=== PATIENT | female | born 1980 | race Caucasian/White ===

== ENCOUNTER 2018-10-22 09:57 | Inpatient (IN) ==
[2018-10-22] MEDS ORDERED: Tdap (Boostrix) Vaccine 0.5 ML SYRINGE IM ONE (10:02)
[2018-10-22] MEDS ORDERED: Lidocaine 1% 20 ML MDV INFILT ONE (10:21)
[2018-10-22 10:35] LABS: Bilirubin,Urine Negative (Negative); Blood,Urine Trace (Negative); Clarity,Urine Cloudy (Clear); Color,Urine Dark Yellow (Yellow); Glucose,Urine (UA) Normal (Normal); Ketones,Urine Negative (Negative); Leukocyte Esterase,Urine Small (Negative); Nitrite,Urine Positive (Negative); PH,Urine 6.5 pH Units (5.0-8.0); Protein,Urine Trace mg/dL (Neg-Trace); Specific Gravity,Urine 1.013 (1.010-1.025); Urobilinogen,Urine Normal (Normal)
[2018-10-22 10:38] LABS: Bacteria,Urine Many per hpf (None-Few); Hyaline Casts,Urine None Seen per lpf (None-Few); Squamous Epithelial Cell,Urine Many per lpf (None-Few)
[2018-10-22 10:50] LABS: Hematocrit 29.5 % (35.3-44.9); Hemoglobin 9.8 g/dL (11.5-15.4); Mean Corpuscular HGB Conc 33.2 g/dL (31.6-35.5); Mean Corpuscular Hemoglobin 28.7 pg (28.0-33.3); Mean Corpuscular Volume 86.5 fL (83.0-100.0); Mean Platelet Volume 10.1 fL (9.4-12.4); Platelet Count 231 K/mcL (140-400); Red Blood Count 3.41 M/mcL (3.82-4.97); Red Cell Distribution Width 13.2 % (11.5-14.5); White Blood Count 9.7 K/mcL (4.3-11.1)
[2018-10-22 11:10] LABS: Alanine Aminotransferase 27 Units/L (7-52); Albumin 3.2 g/dL (3.5-5.7); Albumin/Globulin Ratio 0.8 (1.1-2.2); Alkaline Phosphatase 192 Units/L (34-104); Aspartate Amino Transferase 27 Units/L (13-39); BUN/Creatinine Ratio 12 (6-26); Bilirubin,Total 0.8 mg/dL (0.3-1.0); Blood Urea Nitrogen 9 mg/dL (6-20); Calcium 8.8 mg/dL (8.6-10.3); Carbon Dioxide 26 mEq/L (23-29); Chloride 97 mEq/L (98-107); Globulin 4.1 g/dL (2.4-3.5); Glucose 106 mg/dL (70-105); Osmolality,Calculated 269 (280-300); Sodium 130 mEq/L (136-145); Total Protein 7.3 g/dL (6.4-8.9); eGFR For African Americans > 60 (> 60); eGFR For Non-African Americans > 60 (> 60)
[2018-10-22 11:23] LABS: Amphetamine Screen,Urine Positive ng/mL (Cutoff=1000); Barbiturate Screen,Urine Negative ng/mL (Cutoff=200); Benzodiazepines Screen,Urine Negative ng/mL (Cutoff=200); Cannabinoid Screen,Urine Negative ng/mL (Cutoff = 50); Cocaine Screen,Urine Negative ng/mL (Cutoff= 300); Opiate Screen,Urine Negative ng/mL (Cutoff=300); Phencyclidine Screen,Urine Negative ng/mL (Cutoff=25)
[2018-10-22 11:24] LABS: Acetaminophen < 10 mcg/mL (10-20); Ethanol < 10 mg/dL (Less than 10); Salicylate < 2.5 mg/dL (15.0-30.0)
[2018-10-22 11:32] LABS: Lymphocytes # 2.9 K/mcL (0.6-4.6); Monocytes # 0.5 K/mcL (0.0-1.3); Neutrophils # 6.2 K/mcL (1.6-8.9); Platelet Estimate Normal (Normal); Reactive Lymphocytes Present (Not Present)
[2018-10-22] MEDS ORDERED: Isovue-370 500 ML BOTTLE IVP ONE ×2 (11:39→11:41)
[2018-10-22] MEDS ORDERED: 0.9 % Sodium Chloride 1,000 ML IVC ONE (11:51)
[2018-10-22] MEDS ORDERED: Ondansetron 4 MG/2 ML VIAL IVP ONE ×3 (12:02→15:24)
[2018-10-22] MEDS ORDERED: *HR* FentaNYL (PF) 100 MCG/2 ML VIAL IVP ONE ×2 (12:02→15:46)
[2018-10-22] MEDS ORDERED: cefTRIAXone 1,000 MG in 0.9 % Sodium Chloride Mini Bag 100 ML IVPB ONE (12:02)
[2018-10-22 12:09] LABS: Creatine Kinase 16 Units/L (30-223)
[2018-10-22] MEDS ORDERED: Nicotine 7 MG PATCH.TD24 TD ONE (12:14)
[2018-10-22] MEDS ORDERED: Morphine Sulfate 2 MG/ML SYRINGE IVP ONE (14:22)
[2018-10-22 14:41] LABS: INR 1.1; Prothrombin Time 12.9 Seconds (9.4-12.1)
[2018-10-22 14:44] LABS: Activated Partial Thrombo Time 36.9 Seconds (26.0-36.0)
[2018-10-22 14:46] LABS: Hematocrit 29.7 % (35.3-44.9); Hemoglobin 9.8 g/dL (11.5-15.4); Mean Corpuscular Hemoglobin 28.9 pg (28.0-33.3); Mean Corpuscular Volume 87.6 fL (83.0-100.0); Mean Platelet Volume 10.7 fL (9.4-12.4); Platelet Count 227 K/mcL (140-400); Red Blood Count 3.39 M/mcL (3.82-4.97); Red Cell Distribution Width 13.2 % (11.5-14.5); White Blood Count 8.6 K/mcL (4.3-11.1)
[2018-10-22 15:09] LABS: Eosinophils # 0.5 K/mcL (0.0-0.6); Lymphocytes # 2.6 K/mcL (0.6-4.6); Monocytes # 0.5 K/mcL (0.0-1.3); Platelet Estimate Normal (Normal)
[2018-10-22] MEDS ORDERED: Naloxone 0.4 MG/ML INJ IVP PRN (15:12)
[2018-10-22] MEDS ORDERED: D5% in Water 1,000 ML IVC PRN (15:18)
[2018-10-22] MEDS ORDERED: Dextrose Gel 15 GM/37.5 ML TUBE PO PRN ×2 (15:18)
[2018-10-22] MEDS ORDERED: *HR* Dextrose 50 % in Water (Syg) 50 ML SYRINGE IVP PRN (15:18)
[2018-10-22] MEDS ORDERED: D5% in 0.9% NACL 1,000 ML IVC SCH (15:30)
[2018-10-22] MEDS ORDERED: Clindamycin 600 MG/50 ML 600 MG/50 ML IV.SOLN IVPB SCH (16:00)
[2018-10-22] MEDS ORDERED: Ondansetron 4 MG/2 ML VIAL IVP PRN (16:10)
[2018-10-22 16:33] LABS: Hematocrit 27.6 % (35.3-44.9); Hemoglobin 9.1 g/dL (11.5-15.4); Mean Corpuscular Hemoglobin 29.2 pg (28.0-33.3); Mean Corpuscular Volume 88.5 fL (83.0-100.0); Mean Platelet Volume 10.1 fL (9.4-12.4); Platelet Count 222 K/mcL (140-400); Red Blood Count 3.12 M/mcL (3.82-4.97); Red Cell Distribution Width 13.2 % (11.5-14.5); White Blood Count 8.3 K/mcL (4.3-11.1)
[2018-10-22 17:56] LABS: Lymphocytes # 2.5 K/mcL (0.6-4.6); Monocytes # 0.3 K/mcL (0.0-1.3); Neutrophils # 5.5 K/mcL (1.6-8.9); Platelet Estimate Normal (Normal); Reactive Lymphocytes Present (Not Present)
[2018-10-22] MEDS: Insulin LISPRO 300 UNITS/3 ML VIAL SQ SCH (18:27)
[2018-10-22 18:58] LABS: Basophils # 0.1 K/mcL (0.0-0.2); Basophils % 0.7 %; Eosinophils # 0.1 K/mcL (0.0-0.6); Eosinophils % 0.9 %; Hematocrit 26.3 % (35.3-44.9); Hemoglobin 8.6 g/dL (11.5-15.4); Lymphocytes # 2.8 K/mcL (0.6-4.6); Lymphocytes % 36.9 %; Mean Corpuscular HGB Conc 32.7 g/dL (31.6-35.5); Mean Corpuscular Hemoglobin 29.1 pg (28.0-33.3); Mean Corpuscular Volume 88.9 fL (83.0-100.0); Mean Platelet Volume 9.9 fL (9.4-12.4); Monocytes # 0.7 K/mcL (0.0-1.3); Monocytes % 9.2 %; Platelet Count 201 K/mcL (140-400); Red Blood Count 2.96 M/mcL (3.82-4.97); Red Cell Distribution Width 13.2 % (11.5-14.5); Segmented Neutrophils % 51.3 %; White Blood Count 7.7 K/mcL (4.3-11.1)
[2018-10-22 20:19] LABS: Platelet Estimate Normal (Normal)
[2018-10-22] MEDS ORDERED: 0.9 % Sodium Chloride 500 ML IVC ONE (21:00)
[2018-10-23] MEDS: Insulin LISPRO 300 UNITS/3 ML VIAL SQ SCH ×3 (00:04→11:28)
[2018-10-23 00:22] LABS: Basophils % 0.6 %; Eosinophils # 0.1 K/mcL (0.0-0.6); Eosinophils % 1.6 %; Hematocrit 25.6 % (35.3-44.9); Hemoglobin 8.5 g/dL (11.5-15.4); Immature Granulocytes % 1.4 % (0-4); Lymphocytes # 2.7 K/mcL (0.6-4.6); Lymphocytes % 42.7 %; Mean Corpuscular HGB Conc 33.2 g/dL (31.6-35.5); Mean Corpuscular Hemoglobin 29.1 pg (28.0-33.3); Mean Corpuscular Volume 87.7 fL (83.0-100.0); Mean Platelet Volume 10.2 fL (9.4-12.4); Monocytes # 0.6 K/mcL (0.0-1.3); Neutrophils # 2.8 K/mcL (1.6-8.9); Platelet Count 215 K/mcL (140-400); Red Blood Count 2.92 M/mcL (3.82-4.97); Red Cell Distribution Width 13.3 % (11.5-14.5); Segmented Neutrophils % 43.7 %; White Blood Count 6.4 K/mcL (4.3-11.1)
[2018-10-23 00:58] LABS: Platelet Estimate Normal (Normal); Smudge Cells Present (Not Present)
[2018-10-23 07:39] LABS: BUN/Creatinine Ratio 9 (6-26); Blood Urea Nitrogen 7 mg/dL (6-20); Calcium 8.3 mg/dL (8.6-10.3); Carbon Dioxide 27 mEq/L (23-29); Chloride 103 mEq/L (98-107); Glucose 95 mg/dL (70-105); Osmolality,Calculated 278 (280-300); Phosphorous 3.3 mg/dL (2.7-4.5); Sodium 135 mEq/L (136-145); eGFR For African Americans > 60 (> 60); eGFR For Non-African Americans > 60 (> 60)
[2018-10-23 08:17] LABS: Basophils % 0.4 %; Eosinophils # 0.1 K/mcL (0.0-0.6); Eosinophils % 2.2 %; Hematocrit 26.8 % (35.3-44.9); Hemoglobin 8.9 g/dL (11.5-15.4); Immature Granulocytes % 1.3 % (0-4); Mean Corpuscular HGB Conc 33.2 g/dL (31.6-35.5); Mean Corpuscular Hemoglobin 29.4 pg (28.0-33.3); Mean Corpuscular Volume 88.4 fL (83.0-100.0); Mean Platelet Volume 10.4 fL (9.4-12.4); Monocytes # 0.6 K/mcL (0.0-1.3); Monocytes % 10.1 %; Neutrophils # 2.8 K/mcL (1.6-8.9); Platelet Count 229 K/mcL (140-400); Red Blood Count 3.03 M/mcL (3.82-4.97); Red Cell Distribution Width 13.3 % (11.5-14.5); White Blood Count 5.6 K/mcL (4.3-11.1)
[2018-10-23 08:22] LABS: Platelet Estimate Normal (Normal); Reactive Lymphocytes Present (Not Present)
[2018-10-23] MEDS: Lactobacillus 1 EACH CAP.SPRINK PO SCH ×2 (10:19→20:28)
[2018-10-23] MEDS: Clindamycin 600 MG/50 ML 600 MG/50 ML IV.SOLN IVPB SCH ×3 (10:19→23:49)
[2018-10-23 12:02] LABS: C-Reactive Protein 64 mg/L (Less than 10)
[2018-10-23] MEDS ORDERED: cefTRIAXone 1,000 MG in Water for inj. (sterile) 10 ML IVP SCH (13:00)
[2018-10-23] MEDS: Nicotine 21 MG PATCH.TD24 TD SCH (17:47)
[2018-10-23] MEDS ORDERED: Pneumococcal 23 Valent Vaccine 25 MCG/0.5 ML VIAL IM ONE (21:13)
[2018-10-23] MEDS ORDERED: [UNRECOGNIZED DRUG - OTHER] IM ONE (21:14)
[2018-10-23] MEDS ORDERED: [UNRECOGNIZED DRUG - OTHER] IM ONE (21:30)
[2018-10-23] MEDS ORDERED: Haemoph B Poly Conj-Tet Tox/PF 10 MCG/0.5 ML VIAL IM ONE (21:30)
[2018-10-23] MEDS ORDERED: 0.9 % Sodium Chloride 500 ML IVC ONE (23:34)
[2018-10-24] MEDS: Lactobacillus 1 EACH CAP.SPRINK PO SCH ×2 (09:01→20:31)
[2018-10-24] MEDS: Clindamycin 600 MG/50 ML 600 MG/50 ML IV.SOLN IVPB SCH ×2 (09:12→16:06)
[2018-10-24] MEDS: Nicotine 21 MG PATCH.TD24 TD SCH (09:13)
[2018-10-24] MEDS ORDERED: D5% in 0.9% NACL 1,000 ML IVC SCH (09:15)
[2018-10-24] MEDS ORDERED: Aminoglycoside Consult 1 EACH MC ONE (09:15)
[2018-10-24] MEDS ORDERED: *HR* FentaNYL (PF) 100 MCG/2 ML VIAL ONE ×2 (09:50→11:45)
[2018-10-24] MEDS ORDERED: Dexamethasone 4 MG/ML VIAL ONE (09:50)
[2018-10-24] MEDS ORDERED: Lidocaine -MPF 2% 2 ML VIAL ONE (09:50)
[2018-10-24] MEDS ORDERED: *HR* Midazolam HCl 2 MG/2 ML VIAL ONE (09:50)
[2018-10-24] MEDS ORDERED: Ondansetron 4 MG/2 ML VIAL ONE (09:50)
[2018-10-24] MEDS ORDERED: *HR* Rocuronium Bromide 50 MG/5 ML VIAL ONE (09:50)
[2018-10-24] MEDS ORDERED: *HR* Propofol 200 MG/20 ML VIAL IVP ONE (09:50)
[2018-10-24] MEDS ORDERED: Scopolamine Patch 1.5 MG PATCH.TD72 TD ONE (09:51)
[2018-10-24] MEDS ORDERED: Lidocaine -MPF 4% 5 ML AMPUL ONE (09:51)
[2018-10-24] MEDS ORDERED: ceFAZolin 2,000 MG in Water for inj. (sterile) 20 ML IVP ONE (11:00)
[2018-10-24] MEDS ORDERED: *HR* PHENYLEPHRINE 1,000 MCG/10 ML SYRINGE IVP ONE (11:39)
[2018-10-24] MEDS ORDERED: Albumin Human 5% 25.0 GM/500 ML VIAL ONE (11:58)
[2018-10-24] MEDS ORDERED: Insulin LISPRO 300 UNITS/3 ML VIAL SQ SCH ×2 (12:00→18:00)
[2018-10-24] MEDS ORDERED: *HR* Vasopressin 20 UNIT/ML VIAL ONE (12:20)
[2018-10-24] MEDS ORDERED: *HR* HYDROMORPHONE 2 MG/ML VIAL ONE (12:35)
[2018-10-24] MEDS ORDERED: *HR* OxyCODONE Immed Rel 5 MG TABLET PO PRN (13:15)
[2018-10-24] MEDS ORDERED: *HR* HYDROmorphone (PF) 1 MG/ML SYRINGE IVP PRN (13:15)
[2018-10-24] MEDS ORDERED: *HR* Promethazine 25 MG/ML VIAL IVP PRN (13:15)
[2018-10-24] MEDS ORDERED: *HR* Labetalol 20 MG/4 ML SYRINGE IVP PRN (13:15)
[2018-10-24] MEDS ORDERED: Ondansetron 4 MG/2 ML VIAL IVP ONE (13:15)
[2018-10-24] MEDS ORDERED: Dextrose Gel 15 GM/37.5 ML TUBE PO PRN ×2 (14:02)
[2018-10-24] MEDS ORDERED: Naloxone 0.4 MG/ML INJ IVP PRN (14:02)
[2018-10-24] MEDS ORDERED: *HR* Dextrose 50 % in Water (Syg) 50 ML SYRINGE IVP PRN (14:02)
[2018-10-24] MEDS ORDERED: Ondansetron 4 MG/2 ML VIAL IVP PRN (14:02)
[2018-10-24] MEDS ORDERED: D5% in Water 1,000 ML IVC PRN (14:02)
[2018-10-24] MEDS: 0.9 % Sodium Chloride 1,000 ML IVC SCH (16:06)
[2018-10-24] MEDS: Acetaminophen IV 1,000 MG/100 ML INFUS..BTL IVPB SCH (17:00)
[2018-10-24] MEDS: QUEtiapine Fumarate 300 MG TABLET PO SCH (20:32)
[2018-10-24] MEDS ORDERED: DOXEPIN 10 MG PO SCH (21:00)
[2018-10-25] MEDS: 0.9 % Sodium Chloride 1,000 ML IVC SCH ×3 (00:40→15:16)
[2018-10-25] MEDS: Acetaminophen IV 1,000 MG/100 ML INFUS..BTL IVPB SCH ×5 (00:40→23:31)
[2018-10-25] MEDS: Clindamycin 600 MG/50 ML 600 MG/50 ML IV.SOLN IVPB SCH ×4 (00:41→23:31)
[2018-10-25] MEDS ORDERED: 0.9 % Sodium Chloride 500 ML IVC ONE ×2 (06:03→19:29)
[2018-10-25] MEDS: Nicotine 21 MG PATCH.TD24 TD SCH (08:47)
[2018-10-25] MEDS: Lactobacillus 1 EACH CAP.SPRINK PO SCH ×2 (08:47→20:05)
[2018-10-25 09:51] LABS: Basophils % 0.3 %; Eosinophils % 0.2 %; Hematocrit 30.2 % (35.3-44.9); Hemoglobin 10.1 g/dL (11.5-15.4); Immature Granulocytes % 1.5 % (0-4); Lymphocytes # 2.9 K/mcL (0.6-4.6); Lymphocytes % 21.9 %; Mean Corpuscular HGB Conc 33.4 g/dL (31.6-35.5); Mean Corpuscular Hemoglobin 30.1 pg (28.0-33.3); Mean Corpuscular Volume 89.9 fL (83.0-100.0); Mean Platelet Volume 11.9 fL (9.4-12.4); Monocytes # 1.4 K/mcL (0.0-1.3); Monocytes % 10.9 %; Nucleated Red Blood Cells 0.2 /100 WBC (0); Platelet Count 180 K/mcL (140-400); Red Blood Count 3.36 M/mcL (3.82-4.97); Red Cell Distribution Width 14.4 % (11.5-14.5); Segmented Neutrophils % 65.2 %
[2018-10-25 10:04] LABS: Alanine Aminotransferase 16 Units/L (7-52); Albumin 2.8 g/dL (3.5-5.7); Albumin/Globulin Ratio 0.8 (1.1-2.2); Alkaline Phosphatase 128 Units/L (34-104); Aspartate Amino Transferase 35 Units/L (13-39); BUN/Creatinine Ratio 15 (6-26); Bilirubin,Total 0.4 mg/dL (0.3-1.0); Blood Urea Nitrogen 11 mg/dL (6-20); Calcium 8.4 mg/dL (8.6-10.3); Carbon Dioxide 24 mEq/L (23-29); Chloride 112 mEq/L (98-107); Globulin 3.5 g/dL (2.4-3.5); Glucose 105 mg/dL (70-105); Magnesium 2.2 mg/dL (1.6-2.6); Osmolality,Calculated 290 (280-300); Phosphorous 3.4 mg/dL (2.7-4.5); Sodium 140 mEq/L (136-145); Total Protein 6.3 g/dL (6.4-8.9); eGFR For African Americans > 60 (> 60); eGFR For Non-African Americans > 60 (> 60)
[2018-10-25 10:06] LABS: Neutrophils # 8.5 K/mcL (1.6-8.9); White Blood Count 13.1 K/mcL (4.3-11.1)
[2018-10-25] MEDS: Ketorolac 15 MG/ML VIAL IVP SCH ×3 (12:11→23:31)
[2018-10-25 12:48] LABS: Varicella Zoster IgG Antibody Positive
[2018-10-25 12:49] LABS: Mumps Virus IgG Antibody POSITIVE; Rubella IgG Antibody POSITIVE (POSITIVE); Rubeola (Measles) IgG POSITIVE (POSITIVE)
[2018-10-25 14:35] LABS: Hepatitis B Surface Antigen Nonreactive (Nonreactive)
[2018-10-25 15:04] LABS: Hepatitis B Core IgM Nonreactive (Nonreactive)
[2018-10-25 15:05] LABS: Hepatitis A Antibody IgM Nonreactive (Nonreactive)
[2018-10-25 16:44] LABS: Hepatitis C Virus Antibody Reactive (Nonreactive)
[2018-10-25] MEDS: QUEtiapine Fumarate 300 MG TABLET PO SCH (20:05)
[2018-10-26] MEDS: 0.9 % Sodium Chloride 1,000 ML IVC SCH ×3 (02:55→15:37)
[2018-10-26] MEDS ORDERED: 0.9 % Sodium Chloride 500 ML IVC ONE (03:32)
[2018-10-26] MEDS: Ketorolac 15 MG/ML VIAL IVP SCH ×2 (05:12→11:41)
[2018-10-26] MEDS: Acetaminophen IV 1,000 MG/100 ML INFUS..BTL IVPB SCH ×2 (05:18→11:42)
[2018-10-26] MEDS: Clindamycin 600 MG/50 ML 600 MG/50 ML IV.SOLN IVPB SCH ×2 (08:49→15:37)
[2018-10-26] MEDS: Lactobacillus 1 EACH CAP.SPRINK PO SCH (08:50)
[2018-10-26] MEDS: Nicotine 21 MG PATCH.TD24 TD SCH (08:50)
[2018-10-26 09:33] LABS: BUN/Creatinine Ratio 15 (6-26); Blood Urea Nitrogen 10 mg/dL (6-20); Calcium 8.2 mg/dL (8.6-10.3); Carbon Dioxide 24 mEq/L (23-29); Chloride 110 mEq/L (98-107); Glucose 90 mg/dL (70-105); Osmolality,Calculated 291 (280-300); Sodium 141 mEq/L (136-145); eGFR For African Americans > 60 (> 60); eGFR For Non-African Americans > 60 (> 60)
[2018-10-26 16:08] VITALS: BP 107/71
[2018-10-26 17:02] LABS: Hematocrit 30.1 % (35.3-44.9); Hemoglobin 9.9 g/dL (11.5-15.4); Mean Corpuscular HGB Conc 32.9 g/dL (31.6-35.5); Mean Corpuscular Hemoglobin 29.7 pg (28.0-33.3); Mean Corpuscular Volume 90.4 fL (83.0-100.0); Mean Platelet Volume 11.7 fL (9.4-12.4); Nucleated Red Blood Cells 0.8 /100 WBC (0); Platelet Count 305 K/mcL (140-400); Red Blood Count 3.33 M/mcL (3.82-4.97); Red Cell Distribution Width 15.4 % (11.5-14.5); White Blood Count 12.5 K/mcL (4.3-11.1)
[2018-10-26 18:04] LABS: Lymphocytes # 2.8 K/mcL (0.6-4.6); Monocytes # 1.3 K/mcL (0.0-1.3); Neutrophils # 8.3 K/mcL (1.6-8.9)
[2018-10-26 18:05] LABS: Microcytosis Present (Not Present); Platelet Estimate Normal (Normal)
== END 2018-10-26 18:03 | disposition home or self-care (01) | DRG 650 ==
LOC: 3ANU 09:57 → EMEROOARM 09:57 → SUATTDRO 17:00 → 3ANU 17:38
PROVIDERS: ADMIT Internal Medicine; ATTEND Internal Medicine

== ENCOUNTER 2020-04-27 11:43 | Inpatient (IN) ==
[2020-04-27] MEDS ORDERED: 0.9 % Sodium Chloride 1,000 ML IVC ONE (11:51)
[2020-04-27] MEDS ORDERED: Isovue-370 500 ML BOTTLE IVP ONE ×2 (11:56→14:11)
[2020-04-27 12:37] LABS: INR 1.3
[2020-04-27 12:57] LABS: Basophils % 0.3 %; Eosinophils % 0.3 %; Mean Platelet Volume 11.4 fL (9.4-12.4)
[2020-04-27 12:59] LABS: Basophils # 0.1 K/mcL (0.0-0.2); Eosinophils # 0.1 K/mcL (0.0-0.6); Hemoglobin 15.8 g/dL (11.5-15.4); Lymphocytes # 2.6 K/mcL (0.6-4.6); Lymphocytes % 9.5 %; Mean Corpuscular HGB Conc 32.2 g/dL (31.6-35.5); Mean Corpuscular Volume 90.1 fL (83.0-100.0); Monocytes # 2.7 K/mcL (0.0-1.3); Neutrophils # 21.2 K/mcL (1.6-8.9); Platelet Count 312 K/mcL (140-400); Red Blood Count 5.44 M/mcL (3.82-4.97); Red Cell Distribution Width 14.2 % (11.5-14.5); Segmented Neutrophils % 78.9 %; White Blood Count 26.9 K/mcL (4.3-11.1)
[2020-04-27 13:12] LABS: Adenovirus Not Detected (Not Detect); Bordetella Pertussis Not Detected (Not Detect); Coronavirus 229E Not Detected (Not Detect); Coronavirus HKU1 Not Detected (Not Detect); Coronavirus NL63 Not Detected (Not Detect); Coronavirus OC43 Not Detected (Not Detect); Human Metapneumovirus Not Detected (Not Detect); Human Rhinovirus/Enterovirus Not Detected (Not Detect); Influenza A Subtype 2009 H1 Not Detected (Not Detect); Influenza B Not Detected (Not Detect); Parainfluenza Virus 1 Not Detected (Not Detect); Parainfluenza Virus 2 Not Detected (Not Detect); Parainfluenza Virus 3 Not Detected (Not Detect); Parainfluenza Virus 4 Not Detected (Not Detect); Respiratory Syncytial Virus Not Detected (Not Detect); SARS-CoV-2 Not Detected (Not Detect)
[2020-04-27 13:13] LABS: Chlamydophila pneumoniae Not Detected (Not Detect); Mycoplasma pneumoniae Not Detected (Not Detect)
[2020-04-27 13:57] LABS: BUN/Creatinine Ratio 17 (6-26); Blood Urea Nitrogen 11 mg/dL (6-20); Calcium 9.7 mg/dL (8.6-10.3); Carbon Dioxide 25 mEq/L (23-29); Chloride 95 mEq/L (98-107); Glucose 103 mg/dL (70-105); Osmolality,Calculated 266 (280-300); Potassium 4.3 mEq/L (3.5-5.1); Sodium 128 mEq/L (136-145); Troponin I 0.04 ng/mL (< 0.04); eGFR For African Americans > 60 (> 60); eGFR For Non-African Americans > 60 (> 60)
[2020-04-27 13:58] LABS: Anisocytosis 1+ (Not Present); Platelet Estimate Normal (Normal)
[2020-04-27] MEDS ORDERED: Aspirin 81 MG TAB.CHEW PO STA (13:58)
[2020-04-27 13:59] LABS: Large Platelets Present (Not Present)
[2020-04-27] MEDS ORDERED: Piperacillin/Tazobactam 3.375 GM in 0.9 % Sodium Chloride Mini Bag 100 ML IVPB ONE (13:59)
[2020-04-27] MEDS ORDERED: Morphine Sulfate 2 MG/ML SYRINGE IVP ONE (14:21)
[2020-04-27] MEDS ORDERED: Perflutren Lipid Microsphere 1.3 ML in 0.9 % Sodium Chloride 8.7 ML IVP PRN (15:45)
[2020-04-27] MEDS ORDERED: Naloxone 0.4 MG/ML INJ IVP PRN (15:53)
[2020-04-27] MEDS ORDERED: *HR* OxyCODONE Immed Rel 5 MG TABLET PO PRN (16:18)
[2020-04-27 16:19] LABS: Amphetamine Screen,Urine Negative ng/mL (Cutoff=1000); Barbiturate Screen,Urine Negative ng/mL (Cutoff=200); Benzodiazepines Screen,Urine Negative ng/mL (Cutoff=200); Cannabinoid Screen,Urine Negative ng/mL (Cutoff = 50); Cocaine Screen,Urine Negative ng/mL (Cutoff= 300); Opiate Screen,Urine Positive ng/mL (Cutoff=300); Phencyclidine Screen,Urine Negative ng/mL (Cutoff=25)
[2020-04-27] MEDS: *HR* HYDROcodone/Acet 5/325 mg TABLET PO PRN (17:26)
[2020-04-27] MEDS ORDERED: Levalbuterol Neb 1.25 MG/3 ML IH SCH (18:00)
[2020-04-27 19:57] LABS: Albumin 3.3 g/dL (3.5-5.7); Albumin/Globulin Ratio 0.9 (1.1-2.2); Bilirubin,Direct 0.1 mg/dL (0.0-0.2); Bilirubin,Indirect 0.3 mg/dL (0.0-1.0); Bilirubin,Total 0.4 mg/dL (0.3-1.0); Globulin 3.6 g/dL (2.4-3.5); Total Protein 6.9 g/dL (6.4-8.9)
[2020-04-27 20:08] LABS: Hepatitis B Surface Antigen Nonreactive (Nonreactive)
[2020-04-27 20:37] LABS: Hepatitis B Core IgM Nonreactive (Nonreactive)
[2020-04-27 20:38] LABS: Hepatitis A Antibody IgM Nonreactive (Nonreactive)
[2020-04-27] MEDS: *HR* Heparin 5,000 UNIT/ML VIAL SQ SCH (21:10)
[2020-04-27] MEDS: Levalbuterol Neb 1.25 MG/3 ML IH SCH (21:13)
[2020-04-28] MEDS: Piperacillin/Tazobactam 3.375 GM in 0.9 % Sodium Chloride Mini Bag 100 ML IVPB SCH ×4 (00:07→23:32)
[2020-04-28] MEDS: *HR* HYDROcodone/Acet 5/325 mg TABLET PO PRN ×2 (00:14→08:07)
[2020-04-28 01:09] LABS: BUN/Creatinine Ratio 13 (6-26); Blood Urea Nitrogen 7 mg/dL (6-20); Calcium 8.7 mg/dL (8.6-10.3); Carbon Dioxide 23 mEq/L (23-29); Chloride 101 mEq/L (98-107); Chol/HDL Ratio 4.1 (0-4.9); Cholesterol 111 mg/dL (< 200); Glucose 83 mg/dL (70-105); HDL Cholesterol 27 mg/dL (40-59); LDL Cholesterol,Calculated 66 mg/dL (< 100); Magnesium 1.9 mg/dL (1.6-2.6); Osmolality,Calculated 271 (280-300); Potassium 4.1 mEq/L (3.5-5.1); Sodium 132 mEq/L (136-145); Triglycerides 88 mg/dL (< 150); eGFR For African Americans > 60 (> 60); eGFR For Non-African Americans > 60 (> 60)
[2020-04-28 03:43] LABS: Hepatitis C Virus Antibody Reactive (Nonreactive)
[2020-04-28] MEDS: Levalbuterol Neb 1.25 MG/3 ML IH SCH ×4 (03:47→22:29)
[2020-04-28] MEDS: *HR* Heparin 5,000 UNIT/ML VIAL SQ SCH ×3 (05:26→23:31)
[2020-04-28] MEDS: Aspirin Enteric Coated 81 MG Tablet PO SCH (07:57)
[2020-04-28 09:11] LABS: Hematocrit 40.4 % (35.3-44.9); Hemoglobin 13.3 g/dL (11.5-15.4); Mean Corpuscular HGB Conc 32.9 g/dL (31.6-35.5); Platelet Count 492 K/mcL (140-400); Red Blood Count 4.59 M/mcL (3.82-4.97); Red Cell Distribution Width 13.9 % (11.5-14.5); White Blood Count 23.2 K/mcL (4.3-11.1)
[2020-04-28 09:15] LABS: INR 1.3; Prothrombin Time 14.6 Seconds (9.4-12.1)
[2020-04-28 09:17] LABS: Activated Partial Thrombo Time 30.8 Seconds (26.0-36.0)
[2020-04-28 10:15] LABS: Estimated Average Glucose 123 mg/dl; Hemoglobin A1C 5.9 %
[2020-04-28] MEDS ORDERED: Nicotine 2 MG GUM BC PRN (11:34)
[2020-04-28] MEDS: Nicotine 21 MG PATCH.TD24 TD SCH (11:49)
[2020-04-28] MEDS: *HR* HYDROmorphone 2 MG/ML SYRINGE IVP PRN ×3 (11:49→20:18)
[2020-04-28] MEDS ORDERED: Perflutren Lipid Microsphere 1.3 ML in 0.9 % Sodium Chloride 8.7 ML IVP PRN (14:05)
[2020-04-29] MEDS: Levalbuterol Neb 1.25 MG/3 ML IH SCH ×4 (03:57→22:41)
[2020-04-29 04:03] LABS: Hematocrit 35.8 % (35.3-44.9); Hemoglobin 11.5 g/dL (11.5-15.4); Mean Corpuscular HGB Conc 32.1 g/dL (31.6-35.5); Mean Corpuscular Hemoglobin 28.3 pg (28.0-33.3); Mean Corpuscular Volume 88.2 fL (83.0-100.0); Platelet Count 511 K/mcL (140-400); Red Blood Count 4.06 M/mcL (3.82-4.97); Red Cell Distribution Width 14.1 % (11.5-14.5)
[2020-04-29 04:18] LABS: BUN/Creatinine Ratio 13 (6-26); Blood Urea Nitrogen 9 mg/dL (6-20); Calcium 8.6 mg/dL (8.6-10.3); Carbon Dioxide 24 mEq/L (23-29); Chloride 104 mEq/L (98-107); Glucose 153 mg/dL (70-105); Osmolality,Calculated 282 (280-300); Potassium 3.6 mEq/L (3.5-5.1); Sodium 135 mEq/L (136-145); eGFR For African Americans > 60 (> 60); eGFR For Non-African Americans > 60 (> 60)
[2020-04-29] MEDS: *HR* Heparin 5,000 UNIT/ML VIAL SQ SCH ×3 (05:16→20:19)
[2020-04-29] MEDS: Vancomycin 1,500 MG/265 ML IV.SOLN IVPB SCH ×2 (05:36→16:16)
[2020-04-29] MEDS: Acetaminophen 325 MG TABLET PO PRN ×2 (05:43→13:55)
[2020-04-29] MEDS: *HR* HYDROmorphone 2 MG/ML SYRINGE IVP PRN ×4 (07:11→20:15)
[2020-04-29] MEDS: Piperacillin/Tazobactam 3.375 GM in 0.9 % Sodium Chloride Mini Bag 100 ML IVPB SCH ×2 (07:11→15:36)
[2020-04-29] MEDS: Aspirin Enteric Coated 81 MG Tablet PO SCH (07:11)
[2020-04-29] MEDS: Nicotine 21 MG PATCH.TD24 TD SCH (07:12)
[2020-04-30] MEDS: *HR* HYDROmorphone 2 MG/ML SYRINGE IVP PRN ×6 (00:22→21:44)
[2020-04-30] MEDS: Piperacillin/Tazobactam 3.375 GM in 0.9 % Sodium Chloride Mini Bag 100 ML IVPB SCH ×2 (00:22→07:24)
[2020-04-30] MEDS: Levalbuterol Neb 1.25 MG/3 ML IH SCH ×4 (03:50→21:12)
[2020-04-30] MEDS: Vancomycin 1,500 MG/265 ML IV.SOLN IVPB SCH (04:52)
[2020-04-30 05:23] LABS: Basophils # 0.1 K/mcL (0.0-0.2); Basophils % 0.6 %; Eosinophils # 0.8 K/mcL (0.0-0.6); Eosinophils % 3.8 %; Hematocrit 39.6 % (35.3-44.9); Hemoglobin 12.9 g/dL (11.5-15.4); Immature Granulocytes % 0.8 % (0-4); Lymphocytes # 3.8 K/mcL (0.6-4.6); Lymphocytes % 19.1 %; Mean Corpuscular HGB Conc 32.6 g/dL (31.6-35.5); Mean Corpuscular Hemoglobin 28.6 pg (28.0-33.3); Mean Corpuscular Volume 87.8 fL (83.0-100.0); Mean Platelet Volume 10.4 fL (9.4-12.4); Monocytes # 2.2 K/mcL (0.0-1.3); Platelet Count 507 K/mcL (140-400); Red Blood Count 4.51 M/mcL (3.82-4.97); Red Cell Distribution Width 14.2 % (11.5-14.5); Segmented Neutrophils % 64.7 %; White Blood Count 20.1 K/mcL (4.3-11.1)
[2020-04-30 05:42] LABS: BUN/Creatinine Ratio 16 (6-26); Blood Urea Nitrogen 10 mg/dL (6-20); Calcium 9.1 mg/dL (8.6-10.3); Carbon Dioxide 23 mEq/L (23-29); Chloride 104 mEq/L (98-107); Glucose 91 mg/dL (70-105); Osmolality,Calculated 279 (280-300); Potassium 4.3 mEq/L (3.5-5.1); Sodium 135 mEq/L (136-145); eGFR For African Americans > 60 (> 60); eGFR For Non-African Americans > 60 (> 60)
[2020-04-30] MEDS: *HR* Heparin 5,000 UNIT/ML VIAL SQ SCH ×3 (06:21→21:00)
[2020-04-30] MEDS: Acetaminophen 325 MG TABLET PO PRN (07:23)
[2020-04-30] MEDS: Aspirin Enteric Coated 81 MG Tablet PO SCH (07:23)
[2020-04-30] MEDS: Nicotine 21 MG PATCH.TD24 TD SCH (07:24)
[2020-04-30] MEDS: Ampicillin/Sulbactam 1,500 MG in 0.9 % Sodium Chloride Mini Bag 100 ML IVPB SCH ×2 (12:40→17:25)
[2020-04-30] MEDS ORDERED: Benzonatate 100 MG CAPSULE PO PRN (16:45)
[2020-04-30] MEDS: Menthol 9.1 MG LOZENGE PO PRN ×3 (17:36→23:05)
[2020-04-30 22:43] VITALS: BP 111/66
[2020-05-01] MEDS: Ampicillin/Sulbactam 1,500 MG in 0.9 % Sodium Chloride Mini Bag 100 ML IVPB SCH (01:45)
[2020-05-01] MEDS: *HR* HYDROmorphone 2 MG/ML SYRINGE IVP PRN (01:46)
[2020-05-01 13:13] LABS: QuantiFERON Mitogen minus NIL 2.98 IU/mL
[2020-05-01 14:47] LABS: QuantiFERON NIL 0.01 IU/mL; QuantiFERON-TB Gold In-Tube NEGATIVE (Negative)
== END 2020-05-01 02:35 | disposition left against medical advice (07) | DRG 720 ==
LOC: 3BNU 11:43 → EMEROOARM 11:43 → SUATTDRO 15:25 → 3BNU 16:28
PROVIDERS: ADMIT Internal Medicine; ATTEND Pharmacist

== ENCOUNTER 2020-05-10 07:07 | Inpatient (IN) ==
[2020-05-10] MEDS ORDERED: 0.9 % Sodium Chloride 1,000 ML IVC ONE (07:39)
[2020-05-10] MEDS ORDERED: Isovue-370 500 ML BOTTLE IVP ONE ×4 (07:40→16:58)
[2020-05-10] MEDS ORDERED: Piperacillin/Tazobactam 3.375 GM in 0.9 % Sodium Chloride Mini Bag 100 ML IVPB ONE (07:53)
[2020-05-10 08:04] LABS: Red Cell Distribution Width 14.1 % (11.5-14.5)
[2020-05-10 08:06] LABS: Hematocrit 38.9 % (35.3-44.9); Hemoglobin 12.7 g/dL (11.5-15.4); Mean Corpuscular HGB Conc 32.6 g/dL (31.6-35.5); Mean Corpuscular Hemoglobin 28.9 pg (28.0-33.3); Mean Corpuscular Volume 88.6 fL (83.0-100.0); Mean Platelet Volume 10.3 fL (9.4-12.4); Platelet Count 486 K/mcL (140-400); Red Blood Count 4.39 M/mcL (3.82-4.97)
[2020-05-10 08:25] LABS: Acetaminophen 15 mcg/mL (10-20); Alanine Aminotransferase 29 Units/L (7-52); Albumin 3.4 g/dL (3.5-5.7); Albumin/Globulin Ratio 0.9 (1.1-2.2); Alkaline Phosphatase 93 Units/L (34-104); Aspartate Amino Transferase 36 Units/L (13-39); BUN/Creatinine Ratio 16 (6-26); Bilirubin,Direct 0.2 mg/dL (0.0-0.2); Bilirubin,Indirect 0.4 mg/dL (0.0-1.0); Bilirubin,Total 0.6 mg/dL (0.3-1.0); Blood Urea Nitrogen 12 mg/dL (6-20); Calcium 8.9 mg/dL (8.6-10.3); Carbon Dioxide 24 mEq/L (23-29); Chloride 96 mEq/L (98-107); Ethanol < 10 mg/dL (Less than 10); Globulin 3.7 g/dL (2.4-3.5); Glucose 134 mg/dL (70-105); Osmolality,Calculated 270 (280-300); Potassium 3.7 mEq/L (3.5-5.1); Salicylate < 2.5 mg/dL (15.0-30.0); Sodium 129 mEq/L (136-145); Total Protein 7.1 g/dL (6.4-8.9); eGFR For African Americans > 60 (> 60); eGFR For Non-African Americans > 60 (> 60)
[2020-05-10 08:35] LABS: White Blood Count 49.9 K/mcL (4.3-11.1)
[2020-05-10 09:06] LABS: Adenovirus Not Detected (Not Detect); Bordetella Pertussis Not Detected (Not Detect); Chlamydophila pneumoniae Not Detected (Not Detect); Coronavirus 229E Not Detected (Not Detect); Coronavirus HKU1 Not Detected (Not Detect); Coronavirus NL63 Not Detected (Not Detect); Coronavirus OC43 Not Detected (Not Detect); Human Metapneumovirus Not Detected (Not Detect); Human Rhinovirus/Enterovirus Not Detected (Not Detect); Influenza A Subtype 2009 H1 Not Detected (Not Detect); Influenza B Not Detected (Not Detect); Mycoplasma pneumoniae Not Detected (Not Detect); Parainfluenza Virus 1 Not Detected (Not Detect); Parainfluenza Virus 2 Not Detected (Not Detect); Parainfluenza Virus 3 Not Detected (Not Detect); Parainfluenza Virus 4 Not Detected (Not Detect); Respiratory Syncytial Virus Not Detected (Not Detect); SARS-CoV-2 Not Detected (Not Detect)
[2020-05-10 09:13] LABS: Bacteria,Urine Few per hpf (None-Few); Bilirubin,Urine Negative (Negative); Blood,Urine Negative (Negative); Clarity,Urine Turbid (Clear); Color,Urine Light-Yellow (Yellow); Glucose,Urine (UA) Normal (Normal); Ketones,Urine Negative (Negative); Leukocyte Esterase,Urine Negative (Negative); Nitrite,Urine Negative (Negative); Protein,Urine 30 mg/dL (Neg-Trace); RBC,Urine 0-3 per hpf (0-3); Specific Gravity,Urine 1.011 (1.010-1.025); Squamous Epithelial Cell,Urine Moderate per hpf (None-Few); Urobilinogen,Urine Normal (Normal); WBC,Urine 0-3 per hpf (0-3)
[2020-05-10 10:05] LABS: Amphetamine Screen,Urine Negative ng/mL (Cutoff=1000); Barbiturate Screen,Urine Negative ng/mL (Cutoff=200); Benzodiazepines Screen,Urine Negative ng/mL (Cutoff=200); Cannabinoid Screen,Urine Negative ng/mL (Cutoff = 50); Cocaine Screen,Urine Negative ng/mL (Cutoff= 300); Opiate Screen,Urine Negative ng/mL (Cutoff=300); Phencyclidine Screen,Urine Negative ng/mL (Cutoff=25)
[2020-05-10] MEDS ORDERED: 0.9 % Sodium Chloride 1,000 ML IVC SCH (11:45)
[2020-05-10] MEDS ORDERED: Naloxone 0.4 MG/ML INJ IVP PRN ×2 (11:55→14:03)
[2020-05-10] MEDS ORDERED: Acetaminophen 325 MG TABLET PO PRN ×2 (11:55→16:52)
[2020-05-10] MEDS ORDERED: Ondansetron 4 MG/2 ML VIAL ONE (13:12)
[2020-05-10] MEDS ORDERED: Lidocaine -MPF 2% 2 ML VIAL ONE (13:12)
[2020-05-10] MEDS ORDERED: *HR* Propofol 200 MG/20 ML VIAL IVP ONE (13:12)
[2020-05-10] MEDS ORDERED: *HR* Succinylcholine 200 MG/10 ML VIAL IVP ONE (13:12)
[2020-05-10] MEDS ORDERED: *HR* FentaNYL (PF) 100 MCG/2 ML VIAL ONE (13:12)
[2020-05-10] MEDS ORDERED: Dexamethasone 4 MG/ML VIAL ONE (13:12)
[2020-05-10] MEDS ORDERED: *HR* Rocuronium Bromide 50 MG/5 ML VIAL ONE (13:12)
[2020-05-10] MEDS ORDERED: Ketorolac 30 MG/ML VIAL ONE (13:14)
[2020-05-10] MEDS ORDERED: Gabapentin 300 MG CAPSULE PO ONE (13:42)
[2020-05-10] MEDS ORDERED: Acetaminophen IV 1,000 MG/100 ML BAG IVPB ONE ×2 (13:42→13:55)
[2020-05-10] MEDS ORDERED: Famotidine 20 MG/2 ML VIAL ONE (13:55)
[2020-05-10] MEDS ORDERED: Ondansetron 4 MG/2 ML VIAL IVP PRN ×2 (14:03→16:52)
[2020-05-10] MEDS ORDERED: *HR* PHENYLEPHRINE 1,000 MCG/10 ML SYRINGE IVP ONE (14:44)
[2020-05-10] MEDS ORDERED: EPHEDrine 50 MG/ML VIAL ONE ×2 (14:48→15:25)
[2020-05-10] MEDS ORDERED: Gabapentin 300 MG CAPSULE PO SCH (15:00)
[2020-05-10] MEDS ORDERED: *HR* HYDROMORPHONE 2 MG/ML VIAL ONE (15:18)
[2020-05-10] MEDS ORDERED: Piperacillin/Tazobactam 3.375 GM in 0.9 % Sodium Chloride Mini Bag 100 ML IVPB SCH (16:00)
[2020-05-10] MEDS: Gabapentin 300 MG CAPSULE PO SCH (17:20)
[2020-05-10] MEDS: 0.9 % Sodium Chloride 1,000 ML IVC SCH (17:23)
[2020-05-10] MEDS ORDERED: Ketorolac 15 MG/ML VIAL IVP SCH (18:00)
[2020-05-10 18:03] LABS: Basophils % 0.2 %; Monocytes % 2.4 %
[2020-05-10 18:05] LABS: INR 1.4; Prothrombin Time 16.4 Seconds (9.4-12.1)
[2020-05-10 18:05] LABS: Basophils # 0.1 K/mcL (0.0-0.2); Hematocrit 30.5 % (35.3-44.9); Hemoglobin 9.9 g/dL (11.5-15.4); Immature Granulocytes % 3.7 % (0-4); Lymphocytes # 0.8 K/mcL (0.6-4.6); Lymphocytes % 1.9 %; Mean Corpuscular HGB Conc 32.5 g/dL (31.6-35.5); Mean Corpuscular Hemoglobin 29.4 pg (28.0-33.3); Mean Corpuscular Volume 90.5 fL (83.0-100.0); Mean Platelet Volume 10.2 fL (9.4-12.4); Neutrophils # 37.7 K/mcL (1.6-8.9); Platelet Count 399 K/mcL (140-400); Red Blood Count 3.37 M/mcL (3.82-4.97); Red Cell Distribution Width 14.5 % (11.5-14.5); Segmented Neutrophils % 91.8 %
[2020-05-10 18:08] LABS: Activated Partial Thrombo Time 27.2 Seconds (26.0-36.0)
[2020-05-10 18:08] LABS: White Blood Count 41.1 K/mcL (4.3-11.1)
[2020-05-10] MEDS: Piperacillin/Tazobactam 3.375 GM in 0.9 % Sodium Chloride Mini Bag 100 ML IVPB SCH (19:28)
[2020-05-10] MEDS: Ketorolac 15 MG/ML VIAL IVP SCH (19:29)
[2020-05-10 19:56] LABS: Hypochromasia Present (Not Present); Platelet Estimate Normal (Normal)
[2020-05-10] MEDS: *HR* Heparin 5,000 UNIT/ML VIAL SQ SCH (20:36)
[2020-05-10] MEDS: Famotidine 20 MG TABLET PO SCH (20:38)
[2020-05-10] MEDS ORDERED: Famotidine 20 MG TABLET PO SCH (21:00)
[2020-05-10 21:38] LABS: BUN/Creatinine Ratio 18 (6-26); Blood Urea Nitrogen 12 mg/dL (6-20); Calcium 8.4 mg/dL (8.6-10.3); Carbon Dioxide 18 mEq/L (23-29); Chloride 104 mEq/L (98-107); Glucose 286 mg/dL (70-105); Osmolality,Calculated 282 (280-300); Potassium 3.8 mEq/L (3.5-5.1); Sodium 131 mEq/L (136-145); Troponin I 0.03 ng/mL (< 0.04); eGFR For African Americans > 60 (> 60); eGFR For Non-African Americans > 60 (> 60)
[2020-05-11] MEDS: Piperacillin/Tazobactam 3.375 GM in 0.9 % Sodium Chloride Mini Bag 100 ML IVPB SCH ×4 (00:01→23:33)
[2020-05-11] MEDS: Ketorolac 15 MG/ML VIAL IVP SCH ×5 (00:01→23:21)
[2020-05-11 02:42] LABS: Monocytes % 3.3 %; Platelet Count 419 K/mcL (140-400)
[2020-05-11 02:44] LABS: Basophils % 0.3 %; Eosinophils % 0.3 %; Hematocrit 35.8 % (35.3-44.9); Hemoglobin 11.7 g/dL (11.5-15.4); Immature Granulocytes % 3.1 % (0-4); Lymphocytes # 1.2 K/mcL (0.6-4.6); Lymphocytes % 2.5 %; Mean Corpuscular HGB Conc 32.7 g/dL (31.6-35.5); Mean Corpuscular Hemoglobin 29.4 pg (28.0-33.3); Mean Corpuscular Volume 89.9 fL (83.0-100.0); Mean Platelet Volume 11.4 fL (9.4-12.4); Monocytes # 1.5 K/mcL (0.0-1.3); Red Blood Count 3.98 M/mcL (3.82-4.97); Red Cell Distribution Width 14.7 % (11.5-14.5); Segmented Neutrophils % 90.5 %
[2020-05-11 02:56] LABS: Basophils # 0.1 K/mcL (0.0-0.2); Eosinophils # 0.1 K/mcL (0.0-0.6); Neutrophils # 42.4 K/mcL (1.6-8.9)
[2020-05-11 02:59] LABS: White Blood Count 46.8 K/mcL (4.3-11.1)
[2020-05-11] MEDS ORDERED: *HR* Enoxaparin 40 MG/0.4 ML SYRINGE SQ SCH ×2 (06:00)
[2020-05-11 06:10] LABS: BUN/Creatinine Ratio 17 (6-26); Blood Urea Nitrogen 12 mg/dL (6-20); Calcium 8.8 mg/dL (8.6-10.3); Carbon Dioxide 21 mEq/L (23-29); Chloride 108 mEq/L (98-107); Glucose 158 mg/dL (70-105); Iron < 10 mcg/dL (50-170); Magnesium 2.1 mg/dL (1.6-2.6); Osmolality,Calculated 285 (280-300); Sodium 136 mEq/L (136-145); Transferrin 167 mg/dL (203-362); eGFR For African Americans > 60 (> 60); eGFR For Non-African Americans > 60 (> 60)
[2020-05-11] MEDS: *HR* Heparin 5,000 UNIT/ML VIAL SQ SCH ×3 (06:47→23:21)
[2020-05-11] MEDS: 0.9 % Sodium Chloride 1,000 ML IVC SCH (07:21)
[2020-05-11] MEDS: Gabapentin 300 MG CAPSULE PO SCH ×3 (07:43→20:05)
[2020-05-11] MEDS: Famotidine 20 MG TABLET PO SCH ×2 (07:43→15:50)
[2020-05-11] MEDS: *HR* HYDROcodone/Acet 5/325 mg TABLET PO PRN ×2 (10:06→15:49)
[2020-05-11] MEDS: Iron Sucrose Complex 400 MG in 0.9 % Sodium Chloride 250 ML IVPB SCH (11:55)
[2020-05-11] MEDS ORDERED: Melatonin 3 MG TABLET PO PRN (14:33)
[2020-05-11] MEDS: hydrOXYzine pamoate 25 MG CAPSULE PO PRN (14:59)
[2020-05-11] MEDS: Clindamycin 600 MG/50 ML 600 MG/50 ML IV.SOLN IVPB SCH ×2 (15:49→23:21)
[2020-05-11] MEDS: Lactobacillus 1 EACH CAP.SPRINK PO SCH (20:04)
[2020-05-12] MEDS: *HR* HYDROcodone/Acet 5/325 mg TABLET PO PRN ×2 (02:50→09:49)
[2020-05-12] MEDS: hydrOXYzine pamoate 25 MG CAPSULE PO PRN (02:50)
[2020-05-12] MEDS: *HR* Heparin 5,000 UNIT/ML VIAL SQ SCH (06:14)
[2020-05-12] MEDS: Ketorolac 15 MG/ML VIAL IVP SCH (06:16)
[2020-05-12] MEDS ORDERED: Vancomycin 1,500 MG/265 ML IV.SOLN IVPB SCH (07:00)
[2020-05-12] MEDS: Piperacillin/Tazobactam 3.375 GM in 0.9 % Sodium Chloride Mini Bag 100 ML IVPB SCH (08:16)
[2020-05-12] MEDS: Lactobacillus 1 EACH CAP.SPRINK PO SCH (08:17)
[2020-05-12] MEDS: Gabapentin 300 MG CAPSULE PO SCH (08:17)
[2020-05-12] MEDS: Famotidine 20 MG TABLET PO SCH (08:17)
[2020-05-12] MEDS: Clindamycin 600 MG/50 ML 600 MG/50 ML IV.SOLN IVPB SCH (08:18)
[2020-05-12] MEDS: Iron Sucrose Complex 400 MG in 0.9 % Sodium Chloride 250 ML IVPB SCH (09:49)
[2020-05-12 10:45] VITALS: BP 133/87
[2020-05-12 11:14] LABS: Basophils % 0.2 %; Lymphocytes % 12.8 %
[2020-05-12 11:15] LABS: Basophils # 0.1 K/mcL (0.0-0.2); Eosinophils # 0.2 K/mcL (0.0-0.6); Eosinophils % 0.8 %; Hematocrit 31.8 % (35.3-44.9); Hemoglobin 10.3 g/dL (11.5-15.4); Immature Granulocytes % 0.7 % (0-4); Mean Corpuscular HGB Conc 32.4 g/dL (31.6-35.5); Mean Corpuscular Hemoglobin 29.3 pg (28.0-33.3); Mean Corpuscular Volume 90.3 fL (83.0-100.0); Mean Platelet Volume 10.7 fL (9.4-12.4); Monocytes % 7.8 %; Neutrophils # 20.3 K/mcL (1.6-8.9); Platelet Count 502 K/mcL (140-400); Red Blood Count 3.52 M/mcL (3.82-4.97); Red Cell Distribution Width 15.4 % (11.5-14.5); Segmented Neutrophils % 77.7 %; White Blood Count 26.1 K/mcL (4.3-11.1)
[2020-05-12 11:16] LABS: Lymphocytes # 3.3 K/mcL (0.6-4.6)
[2020-05-12 11:36] LABS: Alanine Aminotransferase 18 Units/L (7-52); Albumin 2.8 g/dL (3.5-5.7); Albumin/Globulin Ratio 0.9 (1.1-2.2); Alkaline Phosphatase 100 Units/L (34-104); Aspartate Amino Transferase 15 Units/L (13-39); BUN/Creatinine Ratio 25 (6-26); Bilirubin,Total 0.3 mg/dL (0.3-1.0); Blood Urea Nitrogen 18 mg/dL (6-20); Calcium 8.6 mg/dL (8.6-10.3); Carbon Dioxide 19 mEq/L (23-29); Chloride 110 mEq/L (98-107); Globulin 3.1 g/dL (2.4-3.5); Glucose 109 mg/dL (70-105); Osmolality,Calculated 288 (280-300); Potassium 3.8 mEq/L (3.5-5.1); Sodium 138 mEq/L (136-145); Total Protein 5.9 g/dL (6.4-8.9); eGFR For African Americans > 60 (> 60); eGFR For Non-African Americans > 60 (> 60)
[2020-05-12 11:55] LABS: Platelet Estimate Normal (Normal)
== END 2020-05-12 14:00 | disposition left against medical advice (07) | DRG 710 ==
LOC: EMEROOARM 07:07 → 2NNU 13:43 → SUATTDRO 13:43 → 2NNU 13:57
PROVIDERS: ADMIT Student in an Organized Health Care Education/Training Program; ATTEND Family Medicine

== ENCOUNTER 2020-06-22 09:18 | Inpatient (IN) ==
[2020-06-22] MEDS ORDERED: 0.9 % Sodium Chloride 1,000 ML IVC ONE ×3 (09:34→13:52)
[2020-06-22] MEDS ORDERED: Isovue-370 500 ML BOTTLE IVP ONE (09:35)
[2020-06-22] MEDS ORDERED: Piperacillin/Tazobactam 3.375 GM in 0.9 % Sodium Chloride Mini Bag 100 ML IVPB ONE (09:37)
[2020-06-22] MEDS ORDERED: Vancomycin 0 MG in 0.9 % Sodium Chloride 250 ML IVPB SCH (10:00)
[2020-06-22] MEDS ORDERED: Naloxone 0.4 MG/ML INJ IVP ONE (10:11)
[2020-06-22 10:23] LABS: Basophils # 0.1 K/mcL (0.0-0.2); Basophils % 0.5 %; Eosinophils # 0.6 K/mcL (0.0-0.6); Eosinophils % 3.8 %; Hematocrit 41.9 % (35.3-44.9); Hemoglobin 13.5 g/dL (11.5-15.4); Immature Granulocytes % 0.3 % (0-4); Lymphocytes # 5.2 K/mcL (0.6-4.6); Lymphocytes % 34.5 %; Mean Corpuscular HGB Conc 32.2 g/dL (31.6-35.5); Mean Corpuscular Hemoglobin 29.7 pg (28.0-33.3); Mean Corpuscular Volume 92.1 fL (83.0-100.0); Mean Platelet Volume 9.9 fL (9.4-12.4); Monocytes # 1.1 K/mcL (0.0-1.3); Monocytes % 7.5 %; Platelet Count 509 K/mcL (140-400); Red Blood Count 4.55 M/mcL (3.82-4.97); Red Cell Distribution Width 14.8 % (11.5-14.5); Segmented Neutrophils % 53.4 %; White Blood Count 14.9 K/mcL (4.3-11.1)
[2020-06-22 10:25] LABS: Bilirubin,Urine Negative (Negative); Blood,Urine Negative (Negative); Clarity,Urine Clear (Clear); Color,Urine Yellow (Yellow); Glucose,Urine (UA) Normal (Normal); Ketones,Urine Negative (Negative); Leukocyte Esterase,Urine Negative (Negative); Nitrite,Urine Negative (Negative); PH,Urine 5.5 pH Units (5.0-8.0); Protein,Urine Negative (Neg-Trace); Specific Gravity,Urine 1.026 (1.010-1.025); Urobilinogen,Urine Normal (Normal)
[2020-06-22 10:40] LABS: INR 1.1; Prothrombin Time 12.9 Seconds (9.4-12.1)
[2020-06-22 10:43] LABS: Activated Partial Thrombo Time 29.2 Seconds (26.0-36.0)
[2020-06-22 10:45] LABS: Acetaminophen < 10 mcg/mL (10-20); Alanine Aminotransferase 65 Units/L (7-52); Albumin 3.8 g/dL (3.5-5.7); Alkaline Phosphatase 89 Units/L (34-104); Aspartate Amino Transferase 45 Units/L (13-39); Bilirubin,Direct 0.1 mg/dL (0.0-0.2); Bilirubin,Indirect 0.3 mg/dL (0.0-1.0); Bilirubin,Total 0.4 mg/dL (0.3-1.0); Ethanol < 10 mg/dL (Less than 10); Globulin 3.7 g/dL (2.4-3.5); Lipase 6 Units/L (11-82); Salicylate < 2.5 mg/dL (15.0-30.0); Total Protein 7.5 g/dL (6.4-8.9)
[2020-06-22 10:47] LABS: BUN/Creatinine Ratio 17 (6-26); Blood Urea Nitrogen 18 mg/dL (6-20); Calcium 9.3 mg/dL (8.6-10.3); Carbon Dioxide 29 mEq/L (23-29); Chloride 102 mEq/L (98-107); Creatine Kinase 51 Units/L (30-223); Glucose 137 mg/dL (70-105); Magnesium 2.2 mg/dL (1.6-2.6); Osmolality,Calculated 286 (280-300); Phosphorous 3.4 mg/dL (2.7-4.5); Potassium 3.7 mEq/L (3.5-5.1); Sodium 136 mEq/L (136-145); Troponin I < 0.03 ng/mL (< 0.04); eGFR For African Americans > 60 (> 60); eGFR For Non-African Americans 57 (> 60)
[2020-06-22] MEDS ORDERED: Perflutren Lipid Microsphere 1.3 ML in 0.9 % Sodium Chloride 8.7 ML IVP PRN (10:49)
[2020-06-22 11:48] LABS: Amphetamine Screen,Urine Positive ng/mL (Cutoff=1000); Barbiturate Screen,Urine Negative ng/mL (Cutoff=200); Benzodiazepines Screen,Urine Negative ng/mL (Cutoff=200); Cannabinoid Screen,Urine Negative ng/mL (Cutoff = 50); Cocaine Screen,Urine Negative ng/mL (Cutoff= 300); Opiate Screen,Urine Negative ng/mL (Cutoff=300); Phencyclidine Screen,Urine Negative ng/mL (Cutoff=25)
[2020-06-22] MEDS ORDERED: Norepinephrine 4 MG/254 ML IV.SOLN IVC SCH (14:00)
[2020-06-22] MEDS ORDERED: Naloxone 0.4 MG/ML INJ IVP PRN (16:26)
[2020-06-22] MEDS ORDERED: Acetaminophen 325 MG TABLET PO PRN (16:26)
[2020-06-22] MEDS ORDERED: Ondansetron 4 MG/2 ML VIAL IVP PRN (16:26)
[2020-06-22] MEDS ORDERED: Vancomycin (wt based) 1,000 MG VIAL IVPB SCH (17:00)
[2020-06-22] MEDS: Piperacillin/Tazobactam 3.375 GM in 0.9 % Sodium Chloride Mini Bag 100 ML IVPB SCH (19:35)
[2020-06-22] MEDS: *HR* Heparin 5,000 UNIT/ML VIAL SQ SCH (19:37)
[2020-06-23] MEDS: Piperacillin/Tazobactam 3.375 GM in 0.9 % Sodium Chloride Mini Bag 100 ML IVPB SCH ×3 (02:14→16:44)
[2020-06-23 04:57] LABS: Basophils # 0.1 K/mcL (0.0-0.2); Basophils % 0.6 %; Eosinophils # 0.4 K/mcL (0.0-0.6); Eosinophils % 2.8 %; Hematocrit 37.9 % (35.3-44.9); Immature Granulocytes % 0.2 % (0-4); Lymphocytes # 4.5 K/mcL (0.6-4.6); Lymphocytes % 36.6 %; Mean Corpuscular HGB Conc 31.7 g/dL (31.6-35.5); Mean Corpuscular Hemoglobin 29.2 pg (28.0-33.3); Mean Corpuscular Volume 92.2 fL (83.0-100.0); Monocytes # 1.2 K/mcL (0.0-1.3); Neutrophils # 6.1 K/mcL (1.6-8.9); Platelet Count 463 K/mcL (140-400); Red Blood Count 4.11 M/mcL (3.82-4.97); Red Cell Distribution Width 15.1 % (11.5-14.5); Segmented Neutrophils % 49.8 %; White Blood Count 12.3 K/mcL (4.3-11.1)
[2020-06-23 05:07] LABS: Alanine Aminotransferase 50 Units/L (7-52); Alkaline Phosphatase 65 Units/L (34-104); Aspartate Amino Transferase 35 Units/L (13-39); BUN/Creatinine Ratio 16 (6-26); Bilirubin,Direct 0.1 mg/dL (0.0-0.2); Bilirubin,Indirect 0.5 mg/dL (0.0-1.0); Bilirubin,Total 0.6 mg/dL (0.3-1.0); Blood Urea Nitrogen 11 mg/dL (6-20); Calcium 8.2 mg/dL (8.6-10.3); Carbon Dioxide 24 mEq/L (23-29); Chloride 111 mEq/L (98-107); Globulin 2.9 g/dL (2.4-3.5); Glucose 101 mg/dL (70-105); Osmolality,Calculated 288 (280-300); Phosphorous 3.1 mg/dL (2.7-4.5); Potassium 3.4 mEq/L (3.5-5.1); Sodium 139 mEq/L (136-145); Total Protein 5.9 g/dL (6.4-8.9); eGFR For African Americans > 60 (> 60); eGFR For Non-African Americans > 60 (> 60)
[2020-06-23] MEDS: *HR* Heparin 5,000 UNIT/ML VIAL SQ SCH ×2 (06:24→16:44)
[2020-06-23] MEDS ORDERED: *HR* Atropine Sulfate 1 MG/10 ML SYRINGE ONE (10:08)
[2020-06-23] MEDS ORDERED: Acetaminophen 325 MG TABLET PO PRN (11:11)
[2020-06-23] MEDS ORDERED: Ondansetron 4 MG/2 ML VIAL IVP PRN (11:11)
[2020-06-23] MEDS ORDERED: Naloxone 0.4 MG/ML INJ IVP PRN (11:11)
[2020-06-23] MEDS ORDERED: *HR* LORazepam 1 MG TABLET PO PRN (16:33)
[2020-06-23] MEDS ORDERED: Melatonin 3 MG TABLET PO PRN (22:09)
[2020-06-23] MEDS ORDERED: Vancomycin 1,500 MG/265 ML IV.SOLN IVPB SCH (23:45)
[2020-06-24] MEDS: Piperacillin/Tazobactam 3.375 GM in 0.9 % Sodium Chloride Mini Bag 100 ML IVPB SCH ×2 (03:28→09:17)
[2020-06-24] MEDS: *HR* Heparin 5,000 UNIT/ML VIAL SQ SCH (05:08)
[2020-06-24 05:52] LABS: Basophils # 0.1 K/mcL (0.0-0.2); Basophils % 0.5 %; Eosinophils # 0.3 K/mcL (0.0-0.6); Eosinophils % 2.1 %; Hematocrit 39.6 % (35.3-44.9); Hemoglobin 12.6 g/dL (11.5-15.4); Immature Granulocytes % 0.3 % (0-4); Lymphocytes # 4.5 K/mcL (0.6-4.6); Lymphocytes % 28.3 %; Mean Corpuscular HGB Conc 31.8 g/dL (31.6-35.5); Mean Corpuscular Hemoglobin 28.8 pg (28.0-33.3); Mean Corpuscular Volume 90.4 fL (83.0-100.0); Mean Platelet Volume 9.9 fL (9.4-12.4); Monocytes # 1.2 K/mcL (0.0-1.3); Monocytes % 7.8 %; Neutrophils # 9.6 K/mcL (1.6-8.9); Platelet Count 469 K/mcL (140-400); Red Blood Count 4.38 M/mcL (3.82-4.97); White Blood Count 15.8 K/mcL (4.3-11.1)
[2020-06-24 06:08] LABS: BUN/Creatinine Ratio 16 (6-26); Blood Urea Nitrogen 10 mg/dL (6-20); Calcium 8.9 mg/dL (8.6-10.3); Carbon Dioxide 25 mEq/L (23-29); Chloride 110 mEq/L (98-107); Glucose 108 mg/dL (70-105); Magnesium 1.9 mg/dL (1.6-2.6); Osmolality,Calculated 290 (280-300); Potassium 3.6 mEq/L (3.5-5.1); Sodium 140 mEq/L (136-145); eGFR For African Americans > 60 (> 60); eGFR For Non-African Americans > 60 (> 60)
[2020-06-24 07:01] VITALS: BP 130/79
== END 2020-06-24 12:59 | disposition home or self-care (01) | DRG 812 ==
LOC: EMEROOARM 09:18 → SUATTDRO 21:23 → ICNU 21:23 → 3ANU 06-23 14:07
PROVIDERS: ADMIT Pediatrics; ATTEND Family Medicine